=== PATIENT | male | born 1965 | race Caucasian/White ===

== ENCOUNTER 2018-08-26 14:04 | Outpatient (CLI) | payer BC, OTHER ==
[2018-08-26] MEDS ORDERED: NEBI20TA2 PO (15:45)
== END 2018-08-26 23:59 | disposition home or self-care (01) ==
LOC: STAR 14:04
PROVIDERS: ATTEND Internal Medicine
DX: Z02.9 Encounter for administrative examinations, unspecified (principal)

== ENCOUNTER 2018-09-07 06:41 | Day surgery (SDC) | payer BC, OTHER ==
[~2018-09-07] VITALS: Ht 182.9 cm; Wt 104.0 kg
[~2018-09-07 06:41] MED LIST: NEBI20TA2 PO
[2018-09-07] MEDS ORDERED: LACTATED RINGERS 1,000 ML IV SCH (07:03)
[2018-09-07] MEDS ORDERED: PROPOFOL 10 MG/ML, 20ML ONE ×3 (08:38→08:59)
== END 2018-09-07 11:10 | disposition home or self-care (01) ==
LOC: OUT 06:41
PROVIDERS: ATTEND Internal Medicine
DX: K62.89 Other specified diseases of anus and rectum (principal); I10 Essential (primary) hypertension
CPT/HCPCS: 45331; 45341; 88305; J2704; J7120